=== PATIENT | female | born 1955 | race Caucasian/White ===

== ENCOUNTER 2017-12-28 05:50 | Inpatient (IN) ==
[2017-12-22 18:39] LABS: Basophils # (Auto) 0 K/mcL (0.0-0.3); Basophils % (Auto) 0.6 % (0.0-2.0); Eosinophils # (Auto) 0.2 K/mcL (0.0-0.7); Eosinophils % (Auto) 3.2 % (0.0-7.0); Granulocytes % (Auto) 67.7 % (38.0-78.0); Lymphocytes # (Auto) 1.6 K/mcL (1.5-4.8); Lymphocytes % (Auto) 23.4 % (15.5-49.0); Mean Cell Volume 92.3 fL (80.0-100.0); Mean Corpuscular HGB Conc 32.9 g/dL (31.0-36.0); Mean Corpuscular Hemoglobin 30.4 pg (26.0-34.0); Monocytes # (Auto) 0.3 K/mcL (0.1-0.9); Monocytes % (Auto) 5.1 % (1.0-12.0); Platelet Count 170 K/mcL (140-440); RBC 4.03 M/mcL (4.00-5.20); Red Cell Distribution Width 16.5 % (11.5-14.5)
[2017-12-28] MEDS ORDERED: cefOXitin 2 GM VIAL IV SCH (08:00)
[2017-12-28] MEDS ORDERED: MIDAZOLAM 5 MG/5 ML VIAL IV ONE (09:55)
[2017-12-28] MEDS ORDERED: LIDOCAINE HCL/PF 100 MG/5 ML SYRINGE IV ONE (09:55)
[2017-12-28] MEDS ORDERED: DEXAMETHASONE 10 MG/ML VIAL IV ONE (09:55)
[2017-12-28] MEDS ORDERED: fentaNYL 250 MCG/5 ML VIAL IV ONE (09:55)
[2017-12-28] MEDS ORDERED: PHENYLEPHRINE 10 MG/ML VIAL IV ONE (09:55)
[2017-12-28] MEDS ORDERED: ePHEDrine 50 MG/ML AMPUL IV ONE (09:55)
[2017-12-28] MEDS ORDERED: ROCURONIUM 10 MG/ML ML IV ONE (09:55)
[2017-12-28] MEDS ORDERED: GLYCOPYRROLATE 0.2 MG/ML VIAL IV ONE (09:55)
[2017-12-28] MEDS ORDERED: PROPOFOL 200 MG/20 ML VIAL IV ONE (09:55)
[2017-12-28] MEDS ORDERED: ONDANSETRON 4 MG/2 ML VIAL IV ONE (09:55)
[2017-12-28] MEDS ORDERED: fentaNYL 100 MCG/2 ML VIAL IV PRN (11:38)
[2017-12-28] MEDS ORDERED: PROMETHAZINE 25 MG/ML VIAL IV PRN (11:38)
[2017-12-28] MEDS ORDERED: MEPERIDINE 25 MG/ML SYRINGE IV PRN (11:38)
[2017-12-28] MEDS ORDERED: METHOCARBAMOL 1,000 MG/10 ML VIAL IV PRN (11:38)
[2017-12-28] MEDS ORDERED: FLUMAZENIL 0.1 MG/ML ML IV PRN (11:38)
[2017-12-28] MEDS ORDERED: MEPERIDINE 50 MG/ML INJECTION IM PRN (11:38)
[2017-12-28] MEDS ORDERED: IPRATROPIUM/ALBUTEROL 3 ML AMPUL.NEB NEB PRN (11:38)
[2017-12-28] MEDS ORDERED: ATROPINE SULFATE 0.4 MG/ML VIAL IV PRN (11:38)
[2017-12-28] MEDS ORDERED: ACETAMINOPHEN 1,000 MG/100 ML BOTTLE IV ONE (11:38)
[2017-12-28] MEDS ORDERED: PROMETHAZINE 25 MG/ML VIAL IM PRN (11:38)
[2017-12-28] MEDS ORDERED: METOPROLOL TARTRATE 5 MG/5 ML VIAL IV PRN (11:38)
[2017-12-28] MEDS ORDERED: NALOXONE HCL 0.4 MG/ML VIAL IV PRN (11:38)
[2017-12-28] MEDS ORDERED: ONDANSETRON 4 MG/2 ML VIAL IV PRN ×2 (11:38→12:02)
[2017-12-28] MEDS ORDERED: diphenhydrAMINE 50 MG/ML VIAL IV PRN (11:38)
[2017-12-28] MEDS ORDERED: HYDROmorphone 2 MG/ML VIAL IV PRN (11:38)
[2017-12-28] MEDS ORDERED: ePHEDrine 50 MG/ML AMPUL IV PRN (11:38)
[2017-12-28] MEDS ORDERED: LACTATED RINGERS 1,000 ML IV SCH (11:45)
[2017-12-28] MEDS ORDERED: BUPIVACAINE W/EPI 0.25% 50 ML VIAL IJ ONE (11:54)
[2017-12-28] MEDS ORDERED: oxyCODONE/APAP 5/325MG TABLET PO PRN (12:02)
[2017-12-28] MEDS ORDERED: MAGNESIUM HYDROXIDE 30 ML ORAL.SUSP PO PRN (12:02)
[2017-12-28] MEDS ORDERED: ONDANSETRON ODT 4 MG TABLET SL PRN (12:02)
--- NOTE | 2017-12-28 12:19 | Brief Operative Note ---
Date of procedure: 12/28/17 Pre-op diagnosis: right renal cell cancer Post-op diagnosis: same Procedure: right radical nephrectomy Grafts/Implants: No Anesthesia: GETA Findings: see note Complications: none Surgeon: Adam Michel Solar Hot Water Installer: Radha Oviedo Estimated blood loss (cc): 100 Specimens Removed/Pathology: other (right kidney) Condition: stable Disposition: PACU
--- NOTE | 2017-12-28 12:49 | Operative Note ---
DATE OF OPERATION: 12/28/2017 PREOPERATIVE DIAGNOSIS: Right renal cell carcinoma. POSTOPERATIVE DIAGNOSIS: Right renal cell carcinoma. PROCEDURE: Radical nephrectomy. SURGEON: Adma Michel MD MANAGING CONSULTANT CLINICAL PROFESSOR: Radha Oviedo MD INDICATION: The patient is a 62-year-old female who noted to have a mass on the right kidney which was consistent with renal cell carcinoma. This is posterior and we felt that we could try a partial nephrectomy and the Cyber laser was available. She presents now for the nephrectomy. PROCEDURE IN DETAIL: The patient was identified and consent was signed. She was given general anesthesia, placed in supine position, prepped and draped in a standard fashion. Ramirez catheter was placed and this drained clear urine. A subcostal incision was made and this was carried down through the fat and the fascia with electrocautery. We were able to identify the abdominal cavity and were able to carefully pack the colon away and find the white line of Toldt. This was opened. Because of her obesity there was a large amount of fat which we were able to debulk and were able to see the kidney. The lower pole was readily available; the right pole could be felt but because of her width and the size of the tumor it was felt intraoperatively that a partial nephrectomy could not be performed. Therefore, we decided to do a total nephrectomy. The ureter was identified and tied off, and the renal artery and vein were also ligated. These were double ligated on the proximal stump and we were able to take down the hilum. We did not remove the adrenal gland. We were able to remove the tumor in mass. There was no fat around the kidney. This was sent to pathology. Upon view, it did feel like it was involving the hilum. We inspected for bleeding, there was none. We irrigated and then packed the bowel back in its normal position. We closed the fascia in layers with #1 PDS and closed the subcutaneous tissue with 0 Vicryl. The skin was closed with deandre. Sterile dressings were applied. She was awoken and taken to recovery room in stable condition. She tolerated the procedure well. Needle and sponge count were correct. Estimated blood loss 125 mL RZ:olena Job ID: [id number] Doc ID: [id number] Adam Michel MD
[2017-12-28] MEDS: DEXTROSE 5%-NS 1,000 ML IV SCH ×3 (13:45→22:24)
[2017-12-28] MEDS: 0.9 % SODIUM CHLORIDE 10 ML SYRINGE IV SCH ×3 (14:00→22:27)
[2017-12-28] MEDS: cefOXitin 2 GM VIAL IV SCH (17:10)
[2017-12-28] MEDS: INSULIN LISPRO 1 UNIT/0.01 ML UNIT SQ SCH ×2 (17:25→20:40)
[2017-12-28] MEDS ORDERED: metFORMIN 500 MG TABLET PO SCH (17:30)
[2017-12-28] MEDS ORDERED: ACETAMINOPHEN 650 MG/65 ML BOTTLE IV PRN (17:47)
[2017-12-28] MEDS ORDERED: GABAPENTIN 300 MG CAPSULE PO SCH (21:00)
[2017-12-28] MEDS ORDERED: FAMOTIDINE 20 MG TABLET PO SCH (21:00)
[2017-12-29] MEDS: cefOXitin 2 GM VIAL IV SCH (01:52)
[2017-12-29] MEDS: 0.9 % SODIUM CHLORIDE 10 ML SYRINGE IV SCH ×3 (05:46→20:42)
[2017-12-29] MEDS: DEXTROSE 5%-NS 1,000 ML IV SCH ×3 (06:25→15:23)
[2017-12-29 07:04] LABS: Mean Cell Volume 93.8 fL (80.0-100.0); Mean Corpuscular HGB Conc 33.3 g/dL (31.0-36.0); Mean Corpuscular Hemoglobin 31.2 pg (26.0-34.0); Platelet Count 155 K/mcL (140-440); RBC 3.31 M/mcL (4.00-5.20); Red Cell Distribution Width 16.4 % (11.5-14.5)
[2017-12-29 07:11] LABS: Blood Urea Nitrogen 30 mg/dl (8-23)
--- NOTE | 2017-12-29 07:13 | General Surgery Progress Note ---
Subjective Patient reports: feels better Narrative: Note initiated : 12/29/17 at 7:11 am Service Date, if different from initiated Date: [] Patient: Clara Pandya 62 y/o F admitted on 12/28/17 for Radical Nephrectomy , [place]ibel Partial Nephrectomy . Chief Complaint: [] pod #1 feeling better. incision pain. will transfer to floor. ambulate Objective Temp Pulse Resp BP Pulse Ox 98.4 F 82 18 102/66 92 12/29/17 04:01 12/28/17 16:47 12/29/17 04:01 12/29/17 04:01 12/29/17 04:01 - Additional Data Intake & Output - Last 24 hours: Intake & Output 12/27/17 12/28/17 12/29/17 12/30/17 05:59 05:59 05:59 05:59 Intake Total 3690 / 3690 1000 / 1000 Output Total 1110 / 1110 Balance 2580 / 2580 1000 / 1000 Weight 281 lb 4.8 oz - Labs 12/29/17 03:48 12/29/17 03:48 Diabetes panel 12/29/17 Range/Units 03:48 Sodium 140 (133-145) mmol/L Potassium 4.0 (3.3-5.1) mmol/L Chloride 102 (96-108) mmol/L Carbon Dioxide 24 (22-30) mmol/L BUN 30 H (8-23) mg/dl Creatinine 1.4 H (0.6-1.1) mg/dl Glucose 128 H (70-105) mg/dL Calcium 8.4 L (8.6-10.4) mg/dl Calcium panel 12/29/17 Range/Units 03:48 Calcium 8.4 L (8.6-10.4) mg/dl Pituitary panel 12/29/17 Range/Units 03:48 Sodium 140 (133-145) mmol/L Potassium 4.0 (3.3-5.1) mmol/L Chloride 102 (96-108) mmol/L Carbon Dioxide 24 (22-30) mmol/L BUN 30 H (8-23) mg/dl Creatinine 1.4 H (0.6-1.1) mg/dl Glucose 128 H (70-105) mg/dL Calcium 8.4 L (8.6-10.4) mg/dl Adrenal panel 12/29/17 Range/Units 03:48 Sodium 140 (133-145) mmol/L Potassium 4.0 (3.3-5.1) mmol/L Chloride 102 (96-108) mmol/L Carbon Dioxide 24 (22-30) mmol/L BUN 30 H (8-23) mg/dl Creatinine 1.4 H (0.6-1.1) mg/dl Glucose 128 H (70-105) mg/dL Calcium 8.4 L (8.6-10.4) mg/dl Assessment and Plan - Time Spent With Patient Total time spent is greater than 50% in coordination of care (as documented) at patient's floor/unit and/or counseling patient:
[2017-12-29] MEDS ORDERED: ACETAMINOPHEN 650 MG/65 ML BOTTLE IV PRN (07:23)
[2017-12-29] MEDS ORDERED: MAGNESIUM HYDROXIDE 30 ML ORAL.SUSP PO PRN (07:23)
[2017-12-29] MEDS ORDERED: ONDANSETRON 4 MG/2 ML VIAL IV PRN (07:23)
[2017-12-29] MEDS ORDERED: ONDANSETRON ODT 4 MG TABLET SL PRN (07:23)
[2017-12-29] MEDS ORDERED: LEVOTHYROXINE 75 MCG TABLET PO SCH (07:30)
[2017-12-29] MEDS: LEVOTHYROXINE 75 MCG TABLET PO SCH (07:42)
[2017-12-29] MEDS ORDERED: POTASSIUM CHLORIDE 10 MEQ TABLET PO SCH (08:00)
[2017-12-29] MEDS: INSULIN LISPRO 1 UNIT/0.01 ML UNIT SQ SCH ×4 (08:36→20:42)
[2017-12-29] MEDS: buPROPion 150 MG TAB.SR.12H PO SCH (08:37)
[2017-12-29] MEDS: HYDROCHLOROTHIAZIDE 12.5 MG CAPSULE PO SCH (08:37)
[2017-12-29] MEDS: ASPIRIN 81 MG TAB.CHEW PO SCH (08:37)
[2017-12-29] MEDS: PIOGLITAZONE 15 MG TABLET PO SCH (08:37)
[2017-12-29] MEDS: metFORMIN 500 MG TABLET PO SCH ×2 (08:37→17:19)
[2017-12-29] MEDS: ATENOLOL 50 MG TABLET PO SCH (08:37)
[2017-12-29] MEDS: POTASSIUM CHLORIDE 10 MEQ TABLET PO SCH (08:38)
[2017-12-29] MEDS: LISINOPRIL 20 MG TABLET PO SCH (08:38)
[2017-12-29] MEDS: FUROSEMIDE 20 MG TABLET PO SCH (08:38)
[2017-12-29] MEDS: ATORVASTATIN 20 MG TABLET PO SCH (08:38)
[2017-12-29] MEDS ORDERED: buPROPion 150 MG TAB.SR.12H PO SCH (09:00)
[2017-12-29] MEDS ORDERED: ATENOLOL 50 MG TABLET PO SCH (09:00)
[2017-12-29] MEDS ORDERED: LISINOPRIL 20 MG TABLET PO SCH (09:00)
[2017-12-29] MEDS ORDERED: HYDROCHLOROTHIAZIDE 12.5 MG CAPSULE PO SCH (09:00)
[2017-12-29] MEDS ORDERED: ASPIRIN 81 MG TAB.CHEW PO SCH (09:00)
[2017-12-29] MEDS ORDERED: ATORVASTATIN 20 MG TABLET PO SCH (09:00)
[2017-12-29] MEDS ORDERED: PIOGLITAZONE 15 MG TABLET PO SCH (09:00)
[2017-12-29] MEDS ORDERED: FUROSEMIDE 20 MG TABLET PO SCH (09:00)
[2017-12-29] MEDS ORDERED: cefOXitin 2 GM VIAL IV SCH (09:30)
[2017-12-29] MEDS: GABAPENTIN 300 MG CAPSULE PO SCH (20:41)
[2017-12-29] MEDS: FAMOTIDINE 20 MG TABLET PO SCH (20:41)
[2017-12-30] MEDS: DEXTROSE 5%-NS 1,000 ML IV SCH ×2 (01:16→12:22)
[2017-12-30] MEDS: 0.9 % SODIUM CHLORIDE 10 ML SYRINGE IV SCH ×3 (06:09→20:04)
[2017-12-30] MEDS: LEVOTHYROXINE 75 MCG TABLET PO SCH (07:12)
[2017-12-30] MEDS: INSULIN LISPRO 1 UNIT/0.01 ML UNIT SQ SCH ×4 (07:13→20:04)
[2017-12-30] MEDS: metFORMIN 500 MG TABLET PO SCH ×2 (08:32→17:01)
[2017-12-30] MEDS: ATENOLOL 50 MG TABLET PO SCH (08:33)
[2017-12-30] MEDS: FUROSEMIDE 20 MG TABLET PO SCH (08:33)
[2017-12-30] MEDS: ATORVASTATIN 20 MG TABLET PO SCH (08:33)
[2017-12-30] MEDS: ASPIRIN 81 MG TAB.CHEW PO SCH (08:33)
[2017-12-30] MEDS: LISINOPRIL 20 MG TABLET PO SCH (08:33)
[2017-12-30] MEDS: HYDROCHLOROTHIAZIDE 12.5 MG CAPSULE PO SCH (08:33)
[2017-12-30] MEDS: PIOGLITAZONE 15 MG TABLET PO SCH (08:33)
[2017-12-30] MEDS: buPROPion 150 MG TAB.SR.12H PO SCH (08:33)
[2017-12-30] MEDS: POTASSIUM CHLORIDE 10 MEQ TABLET PO SCH (08:33)
--- NOTE | 2017-12-30 08:47 | General Surgery Progress Note ---
Subjective Patient reports: feels better, pain is less, tolerating liquids well, flatus Narrative: Note initiated : 12/30/17 at 8:45 am Service Date, if different from initiated Date: [] Patient: Clara Pandya 62 y/o F admitted on 12/28/17 for Radical Nephrectomy , Possibel Partial Nephrectomy . Chief Complaint: [] POD #2 patient without complaints. not using FLAME DEGREASER will d/c morris, hep lock iv, wean personnel and payroll technician, wound clean and dry. Objective Temp Pulse Resp BP Pulse Ox 98 F 59 L 16 118/77 96 12/30/17 06:42 12/30/17 04:00 12/30/17 07:23 12/30/17 06:42 12/30/17 06:42 - Additional Data Intake & Output - Last 24 hours: Intake & Output 12/28/17 12/29/17 12/30/17 12/31/17 05:59 05:59 05:59 05:59 Intake Total 3690 / 3690 4500 / 4500 Output Total 1110 / 1110 3050 / 3050 Balance 2580 / 2580 1450 / 1450 Weight 281 lb 4.8 oz 290 lb 9.6 oz - Labs 12/29/17 03:48 12/29/17 03:48 Assessment and Plan - Time Spent With Patient Total time spent is greater than 50% in coordination of care (as documented) at patient's floor/unit and/or counseling patient:
[2017-12-30] MEDS: oxyCODONE/APAP 5/325MG TABLET PO PRN ×2 (09:30→20:00)
[2017-12-30] MEDS: GABAPENTIN 300 MG CAPSULE PO SCH (20:00)
[2017-12-30] MEDS: FAMOTIDINE 20 MG TABLET PO SCH (20:00)
[2017-12-31] MEDS: 0.9 % SODIUM CHLORIDE 10 ML SYRINGE IV SCH (05:47)
[2017-12-31] MEDS: INSULIN LISPRO 1 UNIT/0.01 ML UNIT SQ SCH (06:47)
[2017-12-31] MEDS: LEVOTHYROXINE 75 MCG TABLET PO SCH (06:47)
[2017-12-31] MEDS: oxyCODONE/APAP 5/325MG TABLET PO PRN (06:51)
[2017-12-31] MEDS: buPROPion 150 MG TAB.SR.12H PO SCH (08:14)
[2017-12-31] MEDS: PIOGLITAZONE 15 MG TABLET PO SCH (08:14)
[2017-12-31] MEDS: LISINOPRIL 20 MG TABLET PO SCH (08:14)
[2017-12-31] MEDS: HYDROCHLOROTHIAZIDE 12.5 MG CAPSULE PO SCH (08:14)
[2017-12-31] MEDS: ASPIRIN 81 MG TAB.CHEW PO SCH (08:14)
[2017-12-31] MEDS: ATENOLOL 50 MG TABLET PO SCH (08:14)
[2017-12-31] MEDS: metFORMIN 500 MG TABLET PO SCH (08:14)
[2017-12-31] MEDS: POTASSIUM CHLORIDE 10 MEQ TABLET PO SCH (08:14)
[2017-12-31] MEDS: ATORVASTATIN 20 MG TABLET PO SCH (08:14)
[2017-12-31] MEDS: FUROSEMIDE 20 MG TABLET PO SCH (08:14)
--- NOTE | 2017-12-31 09:21 | General Surgery Progress Note ---
Subjective Patient reports: tolerating a regular diet, voiding w/o difficulty, bowel movement, afebrile Narrative: Note initiated : 12/31/17 at 9:20 am Service Date, if different from initiated Date: [] Patient: Clara Pandya 62 y/o F admitted on 12/28/17 for Radical Nephrectomy , Possibel Partial Nephrectomy . Chief Complaint: [] patient doing well. pain controlled with oral meds. will d/c to home Objective Temp Pulse Resp BP Pulse Ox 97.9 F 62 20 118/76 92 12/31/17 07:51 12/31/17 03:44 12/31/17 07:51 12/31/17 07:51 12/31/17 07:51 - Additional Data Intake & Output - Last 24 hours: Intake & Output 12/29/17 12/30/17 12/31/17 01/01/18 05:59 05:59 05:59 05:59 Intake Total 3690 / 3690 4500 / 4500 1360 / 1360 Output Total 1110 / 1110 3050 / 3050 1675 / 1675 550 / 550 Balance 2580 / 2580 1450 / 1450 -315 / -315 -550 / -550 Weight 281 lb 4.8 oz 290 lb 9.6 oz 290 lb - Labs 12/29/17 03:48 12/29/17 03:48 Assessment and Plan - Time Spent With Patient Total time spent is greater than 50% in coordination of care (as documented) at patient's floor/unit and/or counseling patient:
--- NOTE | 2018-01-01 09:20 | Discharge Summary ---
DATE OF ADMISSION: 12/28/2017 DATE OF DISCHARGE: 12/31/2017 ADMITTING DIAGNOSES: Right renal cell carcinoma. DISCHARGE DIAGNOSUS: Right renal cell carcinoma. PROCEDURE: Right radical nephrectomy. Pathology is pending. TRANSFUSIONS: None. COMPLICATIONS: None. INDICATIONS: The patient is a 62-year-old lady who was noted to have an incidental mass on the right side and x-ray appearance was consistent with renal cell carcinoma. She presented for resection. For the rest of history and physical, please see dictation. The patient was taken to the operating room where a radical nephrectomy was performed. We could not do a partial nephrectomy. Postoperatively, she was observed overnight in the ICU and did well. Her hematocrit was stable at 31. She was advanced rapidly through her diet, was having bowel movements. Her wound is clean and dry. At this time, she is ready for discharge to home. DISCHARGE MEDICATIONS: Preop medication plus Percocet. PLAN: We will follow up for staple removal in a week. TORIE:olena Job ID: [id number] Doc ID: [id number] Adam Michel MD
--- NOTE | 2018-01-03 17:10 | Surgical Pathology Report ---
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 -- MARGINS UNINVOLVED BY TUMOR. -- NO MALIGNANCY IDENTIFIED. (DMT:sln) COMMENT: The patient's recent biopsy of this lesion ([id number]; 04/17/2017) characterized as a stromal neoplasm with smooth muscle differentiation and epithelial elements is noted. The nephrectomy has a circumscribed, unencapsulated solid neoplasm that is limited to the renal parenchyma. The neoplasm consists predominantly of haphazardly arranged fascicles of bland appearing spindle cells. Scattered amongst the spindle cells are tubular epithelial elements that vary from small and compact to cystically dilated. The stroma around these epithelial elements is variably condensed and "ovarian-like". No cytologic atypia, mitoses or necrosis are identified within either the spindled or epithelial components. No associated adipose tissue is seen. The morphologic features are that of a benign mixed epithelial and stromal neoplasm or a stromal neoplasm with entrapped epithelial elements, and diagnostic consideration is given to a mixed epithelial and stromal tumor (MEST), a renal leiomyoma, and a smooth muscle predominant angiomyolipoma. Immunohistochemical studies performed on the prior biopsy and current specimen show that the spindle cell component uniformly expresses smooth muscle markers (HHF35, SM-MHC), estrogen receptor, progesterone receptor and WT-1. Epithelial cells were previously shown to express Holman-8 and pancytokeratin. CD10 highlights condensed "ovarian-like" stroma and the luminal aspect of the associated epithelial cells. S100, HMB45, and Melan A are negative. The proliferation index (Ki-67) is low in both the spindle and epithelial cell components (less than 1% of cells). 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 The presence of numerous associated epithelial elements argues against classification as a leiomyoma. The absence of associated adipose tissue and HMB45 or Melan A expression argues against a diagnosis of angiomyolipoma. Mixed stromal and epithelial tumors of the kidney typically appear in women of this age and behave in a benign manner. Rare cases with a malignant epithelial or stromal component have been described. This case has been extensively sampled and no malignant epithelial or stromal components are identified. The lesion is completely excised. MICROSCOPIC DESCRIPTION The following immunohistochemical studies are performed on Block A6: Cell Population: Neoplastic cells HHF-35, SM-MHC: Uniformly positive in spindle cell component. Estrogen receptor, progesterone receptor: Uniformly positive in spindle cell components. WT-1: Uniformly positive in spindle cell component. CD10: Highlights condensed spindle cells at periphery of epithelial elements. Epithelial elements show luminal positivity for CD10. Ki-67 (proliferation index): Less than 1% of spindled and epithelial cells. S100: Negative. Melan A, HMB45: Negative. 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 Some of the tests reported here may not have been cleared or approved by the U.[place]. Food and Drug Administration (FDA). However, the FDA has determined that such clearance or approval is not necessary. Pursuant to the requirements of CLIA, this laboratory has established and verified the accuracy and precision of all tests, and additional information about these tests is available upon request. All technical controls are adequate. CLINICAL HISTORY Right kidney mass. PROCEDURAL IMPRESSION Neoplasm of right kidney. GROSS DESCRIPTION Received in formalin, labeled right kidney, is a 236 gram, 14 (s-i) x 7 (m-l) x 5.5 (a-p) cm right nephrectomy specimen with a minimal amount of attached perinephric soft tissue. The inferior aspect of the kidney shows a round mass protruding from the surface that is circumscribed and covered by renal capsule. The mass is 5 x 4.5 x 3 cm. The soft tissue margin overlying the mass is inked black and the remaining margins are inked blue. The remainder of the exterior surface of the kidney is smooth, nascimento-purple and without lesions or masses. The specimen is bisected and the mass is nascimento-white white to nascimento-pink, firm and ovoid. The mass is limited to the renal parenchyma. The mass abuts the renal capsule and hilum. No gross extension into either the perinephric soft tissue or hilar adipose tissue is seen. No necrosis is identified. The remainder of the renal parenchyma is nascimento-brown with intact renal pyramids and a cortex that ranges from 1.1 to 1.8 cm thick. No additional masses or lesions are identified. Hilar vessels and ureter are unremarkable. Web Developer Programmer sections are submitted as follows: A1 - ureter and vascular surgical margins; A2 - mass to sinus; A3 - mass to cortex; A4 - mass to capsule; A5 - mass to pelvis; A6-A8 - member service representative sections of mass; A9 - grossly normal kidney away from the tumor. (EBD:alexis) Electronically Signed by: Nirmal Rivas M.D.
== END 2017-12-31 10:50 | disposition home or self-care (01) | DRG 657 ==
LOC: MEDSUR 05:50 → ICU 13:35 → MEDSUR 12-29 17:53
CPT/HCPCS: 50220

== ENCOUNTER 2018-04-09 08:11 | Inpatient (IN) ==
[2018-04-03 18:42] LABS: Appearance,Urine CLEAR; Bilirubin,Urine NEG (NEG); Color,Urine YELLOW; Glucose,Urine (UA) NEGATIVE (NEG); Leukocyte Esterase,Urine NEG /uL (NEG); Protein,Urine NEG (NEG); Specific Gravity,Urine 1.018 (1.000-1.035); Urine Blood NEG mg/dL (<0.03); Urobilinogen,Urine NEG (NEG)
[2018-04-03 19:20] LABS: Blood Urea Nitrogen 46 mg/dl (8-23)
[2018-04-03 19:22] LABS: Estimated Average Glucose(eAG) 131 mg/dL; Hemoglobin A1C 6.2 % HGB (4.0-6.0)
[2018-04-03 19:26] LABS: Basophils # (Auto) 0 K/mcL (0.0-0.3); Basophils % (Auto) 0.3 % (0.0-2.0); Eosinophils # (Auto) 0.1 K/mcL (0.0-0.7); Eosinophils % (Auto) 1.2 % (0.0-7.0); Granulocytes % (Auto) 71.1 % (38.0-78.0); Lymphocytes # (Auto) 1.9 K/mcL (1.5-4.8); Lymphocytes % (Auto) 23.4 % (15.5-49.0); Mean Cell Volume 93.9 fL (80.0-100.0); Mean Corpuscular HGB Conc 33.4 g/dL (31.0-36.0); Monocytes # (Auto) 0.3 K/mcL (0.1-0.9); Platelet Count 192 K/mcL (140-440); RBC 3.87 M/mcL (4.00-5.20); Red Cell Distribution Width 15.8 % (11.5-14.5)
[~2018-04-09 08:11] MED LIST: 0.9 % SODIUM CHLORIDE 9 ML, KETOROLAC 30 MG, ROPIVACAINE HCL/PF 49.5 ML, EPINEPHrine 0.... IJ SCH; ACETAMINOPHEN 500 MG TABLET PO SCH; CELECOXIB 200 MG CAPSULE PO SCH; PREGABALIN 75 MG CAPSULE PO SCH; ceFAZolin 1 GM VIAL IV SCH; oxyCODONE 10 MG TAB.ER.12H PO SCH
[2018-04-09] MEDS ORDERED: MIDAZOLAM 5 MG/5 ML VIAL IV ONE (12:15)
[2018-04-09] MEDS ORDERED: ONDANSETRON 4 MG/2 ML VIAL IV ONE (12:15)
[2018-04-09] MEDS ORDERED: PROPOFOL 200 MG/20 ML VIAL IV ONE (12:15)
[2018-04-09] MEDS ORDERED: PHENYLEPHRINE 10 MG/ML VIAL IV ONE (12:15)
[2018-04-09] MEDS ORDERED: LIDOCAINE HCL/PF 100 MG/5 ML SYRINGE IV ONE (12:15)
[2018-04-09] MEDS ORDERED: ePHEDrine 50 MG/ML AMPUL IV ONE (12:15)
[2018-04-09] MEDS ORDERED: DEXAMETHASONE 10 MG/ML VIAL IV ONE (12:15)
[2018-04-09] MEDS ORDERED: GLYCOPYRROLATE 0.2 MG/ML VIAL IV ONE (12:15)
[2018-04-09] MEDS ORDERED: TRANEXAMIC ACID 1,000 MG/10 ML VIAL IV ONE (12:15)
[2018-04-09] MEDS ORDERED: KETAMINE 100 MG/ML ML IV ONE (12:15)
[2018-04-09] MEDS ORDERED: BENZOCAINE/MENTHOL 1 LOZENGE PO PRN ×2 (14:54→15:18)
[2018-04-09] MEDS ORDERED: LACTATED RINGERS 250 ML IV PRN (14:54)
[2018-04-09] MEDS ORDERED: HYDROmorphone 2 MG/ML VIAL IV PRN ×2 (14:54→15:18)
[2018-04-09] MEDS ORDERED: fentaNYL 100 MCG/2 ML VIAL IV PRN (14:54)
[2018-04-09] MEDS ORDERED: MEPERIDINE 25 MG/ML SYRINGE IV PRN (14:54)
[2018-04-09] MEDS ORDERED: METHOCARBAMOL 1,000 MG/10 ML VIAL IV PRN (14:54)
[2018-04-09] MEDS ORDERED: IPRATROPIUM/ALBUTEROL 3 ML AMPUL.NEB NEB PRN (14:54)
[2018-04-09] MEDS ORDERED: ONDANSETRON 4 MG/2 ML VIAL IV PRN ×2 (14:54→15:18)
[2018-04-09] MEDS ORDERED: NALOXONE HCL 0.4 MG/ML VIAL IV PRN (14:54)
[2018-04-09] MEDS ORDERED: FLUMAZENIL 0.1 MG/ML ML IV PRN (14:54)
[2018-04-09] MEDS ORDERED: LACTATED RINGERS 1,000 ML IV SCH (15:00)
--- NOTE | 2018-04-09 15:16 | Brief Operative Note ---
Date of procedure: 04/09/18 Pre-op diagnosis: left knee djd and prior platuea fx with hardware and solius flap Post-op diagnosis: same Procedure: left knee tka with hardware removal two plates and screws and orif tibial fx Grafts/Implants: Yes Anesthesia: GETA Complications: none Surgeon: Anton Bell Hoop Rolls Operator: Stalin Block Estimated blood loss (cc): 200 Tourniquet Time (Minutes): 134 Specimens Removed/Pathology: none sent Condition: stable Disposition: PACU
[2018-04-09] MEDS ORDERED: MAGNESIUM HYDROXIDE 30 ML ORAL.SUSP PO PRN (15:18)
[2018-04-09] MEDS ORDERED: BISACODYL 10 MG SUPP.RECT PR PRN (15:18)
[2018-04-09] MEDS ORDERED: TRANEXAMIC ACID 1,000 MG/10 ML VIAL IV SCH (15:18)
[2018-04-09] MEDS ORDERED: POLYETHYLENE GLYCOL 3350 17 GM PACKET PO PRN (15:18)
[2018-04-09] MEDS ORDERED: FLEETS ADULT ENEMA PR PRN (15:18)
[2018-04-09] MEDS ORDERED: ACETAMINOPHEN 325 MG TABLET PO PRN (15:18)
--- NOTE | 2018-04-09 16:25 | XRay Report ---
CLINICAL INFORMATION: Post-Op Total Knee COMPARISON: 11/27/2017 FINDINGS: Total knee prosthesis is anatomically aligned. Plate and screws transfixing an old proximal tibial fracture which is solidly unified. Soft tissue swelling seen as expected IMPRESSION: Negative Interpreted and Authenticated by: iKrk Bee 04/09/18
--- NOTE | 2018-04-09 16:26 | Operative Note ---
DATE OF OPERATION: 04/09/2018 PREOPERATIVE DIAGNOSIS: Left knee traumatic arthritis with retained hardware both medially and laterally from a tibial plateau fracture. POSTOPERATIVE DIAGNOSIS: Left knee traumatic arthritis with retained hardware both medially and laterally from a tibial plateau fracture. PROCEDURE: Left total knee arthroplasty using the [place] robot, as well as hardware removal both medial and lateral hardware, and open reduction and internal fixation of some tibial plateau fragments. SURGEON: Anton Bell M.D. BLIND HOOKER: Stalin Block PA-C. ANESTHESIA: General LMA anesthesia. TOURNIQUET TIME: 2 hours and 17 minutes. ESTIMATED BLOOD LOSS: About 50 mL to 200 mL. IMPLANTS PLACED: [employer] total knee arthroplasties and one 5.0 tibial plate with three screws. The tibial baseplate had a 50 mm extended stem because of the prior fracture. DESCRIPTION OF PROCEDURE: The patient was brought to the operating room and put to sleep with general LMA anesthesia. Once asleep, the patient had the left leg sterilely prepped and draped in the usual sterile fashion. Once done, we confirmed the operative side. We followed the prior incision. She had had a soleus flap placed about the proximal knee with a skin graft, and this was elevated medially. We performed a lateral approach and avoided any violation of the soleus flap. Once this was done, we exposed the joint and extended the incision through her prior scar, exposing the lateral plate. The lateral plate was removed along with all of its screws. All the screws were removed laterally which extended well down her leg. These screws were removed and plate removed. We then removed the proximal screw medially through a separate incision just behind the soleus flap. Once this was done, we then irrigated thoroughly and then proceeded with the case. The hardware had been removed. We made a lateral approach to the knee and then brought in the robot. We placed the pins above and below the knee, registered the center of hip rotation, medial and lateral malleoli, as well as thirty points on the femur and tibia. Once all this was registered, we balanced the knee, both at 15 and 90 degrees. We adjusted the implants for the tension of the ligaments and then brought in the robot. The bony cuts were made as planned. To place a longer stem because of the prior fracture, we had to use osteotomes to get through very hard bone down the canal. This took us a substantial amount of time. Once we were able to do this, it was noted there was a crack on the anterior cortex laterally that was still remaining from her fracture. This had to be plated with a 5-hole plate from [employer]; a titanium plate with three screws. Two screws proximally and one distally were used to hold the crack in place so the hardware and the total knee could be positioned in place until cement dried. We prepared the femur. The femur and the tibial baseplate were trialed with a 9 and 11. The 11 was too tight. The 9 was perfectly balanced. We irrigated thoroughly and then cemented into place the tibial baseplate as well as the femur, removing the meniscus and any spurs posteriorly, and then injecting the soft tissues postoperatively. We placed a 9 mm poly insert, prepared the patellar button, and the patella was cut down to a thickness of 14. We placed a 36 mm patellar button. This covered nicely. We irrigated thoroughly and cemented the patella onto the patellar button after cutting the worn-out surface. We irrigated thoroughly and then closed the lateral incision and the capsule laterally with #1 Stratafix. We closed the wound distally and proximally and then deandre superficially. A sterile bandage was applied. Tourniquet had been deflated at 2 hours and 17 minutes. There was good vascular flow to the tissues at the end of the case, and the patient tolerated this well without complication. Sterile bandage applied. She awoke without difficulty. EMERSON:radha Job ID: [id number] Doc ID: [id number] Anton Bell MD
[2018-04-09] MEDS: 0.45 % SODIUM CHLORIDE 1,000 ML IV SCH (17:00)
[2018-04-09] MEDS: KETOROLAC 15 MG/ML VIAL IV SCH (17:06)
[2018-04-09] MEDS: metFORMIN 500 MG TABLET PO SCH (17:06)
[2018-04-09] MEDS: HYDROcodone/APAP 10/325MG TABLET PO PRN ×2 (18:00→21:44)
[2018-04-09] MEDS: ceFAZolin 1 GM VIAL IV SCH (19:31)
[2018-04-09] MEDS: ASPIRIN 325 MG ENTERIC COATED TABLET PO SCH (19:31)
[2018-04-09] MEDS: DOCUSATE SODIUM 100 MG CAPSULE PO SCH (19:32)
[2018-04-09] MEDS ORDERED: GABAPENTIN 300 MG CAPSULE PO SCH (21:00)
[2018-04-09] MEDS ORDERED: FAMOTIDINE 20 MG TABLET PO SCH (21:00)
[2018-04-09] MEDS ORDERED: SENNOSIDES 1 TABLET PO SCH (21:00)
[2018-04-09] MEDS ORDERED: TEMAZEPAM 15 MG CAPSULE PO PRN (21:00)
[2018-04-09] MEDS: 0.9 % SODIUM CHLORIDE 10 ML SYRINGE IV SCH (21:40)
[2018-04-10] MEDS: KETOROLAC 15 MG/ML VIAL IV SCH ×3 (01:19→11:52)
[2018-04-10] MEDS: 0.45 % SODIUM CHLORIDE 1,000 ML IV SCH ×2 (02:41→11:52)
[2018-04-10] MEDS: HYDROcodone/APAP 10/325MG TABLET PO PRN ×3 (03:10→11:51)
[2018-04-10] MEDS: ceFAZolin 1 GM VIAL IV SCH (03:10)
[2018-04-10] MEDS: 0.9 % SODIUM CHLORIDE 10 ML SYRINGE IV SCH (04:55)
--- NOTE | 2018-04-10 07:41 | Orthopedic Progress Note ---
Subjective Patient information: Note initiated : 04/10/18 at 7:40 am Service Date, if different from initiated Date: [] Patient: Clara Pandya 62 y/o F admitted on 04/09/18 for Left Robotic Total Knee Arthroplasty. Chief Complaint: [Pt is stable this morning on post operative day 1 without any significant concerns or complaints. Patients vital signs have remained stable. Patients dressing is dry and is grossly intact from a neurovascular and motor standpoint. Patients 10 point ROS is otherwise negative. ] Objective Vital signs: Vital Signs Temp Pulse Resp BP Pulse Ox 04/10/18 07:00 96 04/10/18 06:56 97.4 F 81 16 107/63 96 04/10/18 03:00 97.6 F 84 16 100/64 95 04/09/18 23:21 97.8 F 79 18 98/62 93 04/09/18 21:55 97.6 F 85 18 108/68 95 04/09/18 20:56 92 H 118/75 95 04/09/18 19:55 91 H 110/70 95 04/09/18 19:18 99 04/09/18 18:58 86 108/71 96 04/09/18 18:56 92 H 88/66 97 04/09/18 18:26 90 117/76 96 04/09/18 17:56 89 122/79 96 04/09/18 17:45 77 20 122/79 97 04/09/18 17:26 91 H 20 133/49 97 04/09/18 17:11 92 H 123/70 97 04/09/18 16:57 88 111/72 95 04/09/18 16:56 96.7 F L 87 18 111/72 94 04/09/18 16:49 98.6 F 87 12 129/71 96 04/09/18 16:34 87 15 123/46 97 04/09/18 16:19 91 H 16 114/64 100 04/09/18 16:04 98.1 F 88 16 125/74 99 04/09/18 15:59 88 15 128/67 100 04/09/18 15:54 90 22 125/71 100 04/09/18 15:49 98.8 F 91 H 18 123/70 96 04/09/18 08:47 97.7 F 69 16 128/57 96 04/09/18 08:11 20 Intake and Output 04/09/18 04/10/18 04/10/18 21:59 05:59 13:59 Intake Total 3364 / 3614 250 / 3614 Output Total 1150 / 1350 200 / 1350 Balance 2214 / 2264 50 / 2264 Intake: IV 54 / 54 Oral 1510 / 1760 250 / 1760 IV - Manual Only 1800 / 1800 Output: Urine Catheter Amount 1100 / 1100 Straight 1100 / 1100 Void Amount 200 / 200 Estimated Blood Loss 50 / 50 Other: Meal Dinner Feeding Ability Assist with Tray Set Up Urine Appearance Clear Straight Clear Sediment Urine Color Pale Dark Yellow Straight Pale Urine Odor Strong Straight Strong Weight 285 lb 14.4 oz Intake & Output: Intake & Output 04/09/18 04/10/18 04/10/18 21:59 05:59 13:59 Intake Total 3364 / 3614 250 / 3614 Output Total 1150 / 1350 200 / 1350 Balance 2214 / 2264 50 / 2264 Weight 285 lb 14.4 oz Intake: IV 54 / 54 Oral 1510 / 1760 250 / 1760 IV - Manual Only 1800 / 1800 Output: Urine Catheter Amount 1100 / 1100 Straight 1100 / 1100 Void Amount 200 / 200 Estimated Blood Loss 50 / 50 Other: Meal Dinner Feeding Ability Assist with Tray Set Up Urine Appearance Clear Straight Clear Sediment Urine Color Pale Dark Yellow Straight Pale Urine Odor Strong Straight Strong Incision: Yes healing Dressing: Yes clean, Yes dry Weight bearing status: full Neurological exam IM: Yes motor sensory intact, Yes neurovascular intact Extremities exam IM: Yes Foot pink and warm, Yes neurovascular intact - Labs CBC & BMP: 04/10/18 05:03 04/03/18 16:49 Labs: Orthopedic Labs 04/03/18 16:47 PT 13.4 INR 1.0 APTT 33 04/10/18 04/03/18 05:03 16:47 Hgb 12.1 Hct 30.2 L 36.3 Assessment and Plan (1) Hx of total knee arthroplasty The patient has been educated regarding dressing care, Physical Therapy recommendations, home exercises, restrictions, and follow up appointments. The patient has had all necessary DME prescribed. The patient has remained relatively stable during their hospital course. Status: Acute
--- NOTE | 2018-04-10 07:43 | Discharge Summary ---
Ortho Discharge - TKA - Patient Instructions Diet: Regular Diet Activity: activity as tolerated, weight bearing as tolerated Total Knee Protocol: For Total Knee: Start ROM ZACH with stationary bike or rocking chair. Work on gaining full extension of knee. Posterior dislocation precautions provided. Hip abductor strengthening and gait training instructions provided. Apply Cryocuff as instructed. Dressing Care: May shower in 2 days, Aquacel Ag - leave on for 5 days - Problem Maintenance (1) Hx of total knee arthroplasty Status: Acute - Follow Up Plan Follow Up Appointments: Stalin Block PA-C [Physician Ccu Nurse] - 04/24/18 11:20 am Disposition: Home, Self-Care Prognosis: Good Rehab Potential: Good I certify that the patient requires SNF services: No Overall status at discharge: patient is progressing back to baseline - Orders For Discharge Prescriptions: Aspirin [Ecotrin] 325 mg PO BID #60 tab.ec Docusate Sodium [Colace] 100 mg PO BID #60 capsule HYDROcodone/APAP 10/325MG [[place] 10-325Mg] 1 - 2 tab PO Q4HP PRN #75 tab PRN Reason: Pain Level 3-6
[2018-04-10] MEDS ORDERED: POTASSIUM CHLORIDE 10 MEQ TABLET PO SCH (08:00)
[2018-04-10] MEDS: ASPIRIN 325 MG ENTERIC COATED TABLET PO SCH (08:12)
[2018-04-10] MEDS: metFORMIN 500 MG TABLET PO SCH (08:12)
[2018-04-10] MEDS: DOCUSATE SODIUM 100 MG CAPSULE PO SCH (08:13)
[2018-04-10] MEDS ORDERED: PIOGLITAZONE 15 MG TABLET PO SCH (09:00)
[2018-04-10] MEDS ORDERED: FUROSEMIDE 20 MG TABLET PO SCH (09:00)
[2018-04-10] MEDS ORDERED: HYDROCHLOROTHIAZIDE 12.5 MG CAPSULE PO SCH (09:00)
[2018-04-10] MEDS ORDERED: ATORVASTATIN 20 MG TABLET PO SCH (09:00)
[2018-04-10] MEDS ORDERED: buPROPion 150 MG TAB.SR.12H PO SCH (09:00)
[2018-04-10] MEDS ORDERED: ATENOLOL 50 MG TABLET PO SCH (09:00)
== END 2018-04-10 14:05 | disposition home or self-care (01) | DRG 470 ==
LOC: MEDSUR 08:11
PROVIDERS: ADMIT Orthopaedic Surgery; ATTEND Orthopaedic Surgery